=== PATIENT | female | born 1995 | race Caucasian/White ===

== ENCOUNTER 2023-06-25 16:28 | Emergency (ER) | payer OTHER, SELFPAY ==
[2023-06-25 16:31] VITALS: BP 126/92
[2023-06-25 16:49] LABS: % Basophils 1.1 % (0-2); % Eosinophils 7.9 % (0-6); % Immature Granulocytes 0.1 % (0-0.5); % Lymphocytes 30.3 % (20.5-51.1); % Monocytes 7.5 % (1.7-9.3); % Neutrophils 53.1 % (42.2-75.2); Absolute Basophils 0.1 10^3/uL (0-0.2); Absolute Eosinophils 0.6 10^3/uL (0-0.7); Absolute Lymphocytes 2.5 10^3/uL (1.2-3.4); Absolute Monocytes 0.6 10^3/uL (0.1-0.6); Absolute Neutrophils 4.3 10^3/uL (1.4-6.5); Hematocrit 40.2 % (37.0-47.0); Hemoglobin 14.4 g/dL (12.0-16.0); Mean Corp Hgb Conc. 35.8 g/dL (33.0-37.0); Mean Corpuscular Hgb 32.1 pg (27.0-31.0); Mean Corpuscular Volume 89.5 fL (81.0-99.0); Mean Platelet Volume 8.8 fL (7.4-10.4); Nucleated Red Blood Cells % 0 %; Platelet Count 353 10^3/uL (130-400); Red Blood Cell Count 4.49 10^6/uL (4.20-5.40); White Blood Cell Count 8.1 10^3/uL (4.8-10.8)
[2023-06-25 17:03] LABS: HCG, Serum Qualitative Screen Negative
[2023-06-25 17:47] LABS: ALT (SGPT) 15 U/L (0-35); AST (SGOT) 19 U/L (14-36); Albumin 4.6 g/dl (3.5-5.0); Alkaline Phosphatase 67 U/L (38-126); Blood Urea Nitrogen 13 mg/dl (7-17); Calcium 9.4 mg/dl (8.4-10.2); Carbon Dioxide 25 mmol/L (22-30); Chloride 106 mmol/L (98-107); Glucose 83 mg/dl (70-99); Potassium 3.8 mmol/L (3.5-5.1); Sodium 139 mmol/L (135-145); Total Bilirubin 0.4 mg/dl (0.2-1.3); Total Protein 7.7 g/dl (6.3-8.2); eGFR > 60.00
--- NOTE | 2023-06-25 20:36 | ED.GENMED ---
History of Present Illness
General
Chief Complaint: Abdominal Symptoms
Source: patient
Exam Limitations: none
Time Seen by Provider: 06/25/23 19:46
Nursing documentation reviewed up to this point in time: agreed with
Travel History
Have you had any contact with someone who has COVID-19?: No
Do you have any symptoms of coronavirus? Fever > 100 degrees, chills, cough, shortness of breath, sore throat, loss of taste or smell, muscle aches, or headache?: No
History of Present Illness
History of Present Illness:
28-year-old female states she's had diarrhea for a month, it had blood in it today. She denies abdominal pain. Denies fever. Is followed by her PCP and has had extensive workup of her stool recently and referred to GI for f/u and has appt w Dr. Love
next month.
She also has had pain left lower back for several weeks, has been doing home P/T with no relief of the pain.
Past History
Past History
ED Past Medical History: None and Other (Gastritis)
ED Past Surgical History: None
Social History
Tobacco: Non-smoker
Alcohol: None
Drug: None
Personal: Single
Living: with family
Employment: Student
Family History
Family History: Other (Noncontributory)
Review of Systems
Review of Systems
Allergies reviewed?: Yes
All Other Systems: ROS reviewed and negative except as documented in HPI and ROS
Constitutional: Denies fever
Respiratory: Denies trouble breathing
Cardiac: Denies chest pain
ABD/GI: Reports diarrhea and bloody stools; Denies abdominal pain, nausea, vomiting or anorexia
: Denies dysuria, frequency or difficulty voiding
Musculoskeletal: Reports no symptoms
Skin: Reports no symptoms
Neurological: Reports no symptoms
Phy Exam
Physical Exam
Physical Exam:
GENERAL: No acute distress. A&Ox3.
CONSTITUTIONAL: Afebrile.
EYES: clear, conjunctivae normal
ENMT: moist mucus membranes, Pharynx nl
RESPIRATORY: Regular respirations, nonlabored, lungs clear.
CARDIOVASCULAR: Regular rate and rhythm, no murmurs, no rubs.
GI: Soft, nontender, normal BS
Rectal: formed stool, brown, heme neg
MUSCULOSKELETAL: Tender over left SI joint. Full ROM. Moves with ease. Well perfused.
SKIN: Warm, dry, pink
PSYCH: Normal mood and affect. Well kept, interactive and appropriate
NEUROLOGIC: Awake, alert and oriented. No focal neurological deficits
Course
Orders/Labs/Results
Orders:
Orders
06/25/23 16:36
Test Result ONCE
06/25/23 16:41
Type+Screen Urgent
CBC/With Diff [Complete Blood Count/With Diff] Urgent
CMP [Comprehensive Metabolic Panel] Urgent
HCG, Serum Qualitative Screen Urgent
06/25/23 19:44
CDIFF [C difficile Antigen & Toxins] Urgent
MELYSSA Source: Feces/Stool
Specimen Description:
Date Specimen was Collected: 06/25/23
Time Specimen was Collected: 19:48
Stool Culture Urgent
MELYSSA Source: Feces/Stool
Specimen Description:
Date Specimen was Collected: 06/25/23
Time Specimen was Collected: 19:48
06/25/23 20:43
Dexamethasone [Decadron] 10 mg PO NOW STA
06/25/23 20:49
Dexamethasone Sod Phosphate [Decadron] 10 mg IV NOW STA
Abnormal Lab Results
06/25/23
16:41
MCH 32.1 H pg
(27.0-31.0)
RDW 11.0 L %
(11.5-14.5)
Eosinophils % 7.9 H %
(0-6)
06/25/23 16:41
06/25/23 16:41
Vital Signs
Initial and Last Documented VS:
Initial Vital Signs
Temp Pulse Resp BP Pulse Ox
98.1 F 73 18 126/92 99
06/25/23 16:31 06/25/23 16:31 06/25/23 16:31 06/25/23 16:31 06/25/23 16:31
Last Documented Vital Signs
Temp Pulse Resp BP Pulse Ox
98.1 F 73 18 126/92 99
06/25/23 16:31 06/25/23 16:31 06/25/23 16:31 06/25/23 16:31 06/25/23 19:41
MDM/Problems Addressed
Differential Diagnosis Includes:
viral vs infectious diarrhea
sacroiliitis, sciatica
MDM/Problems Addressed:
States she has had diarrhea for a month. She noted blood in her stool today. She has had extensive workup by PCP with numerous stool testing. She was referred to GI and has appt. with Dr. Love next month.
She is in no distress, last diarrhea was this a.m.
Labs are unremarkable.
For her left lower back pain, immediately tender over SI joint, short burst of steroids prescribed.
06/25/2023 1906 PM
CBC normal
CMP normal
hCG negative formed brown stool on rectal exam hematest negative
Abdomen benign, do not suspect diverticulitis/colitis, no indication for imaging at this point
*Critical Care Note
Total Time (30-74mins, 75-104mins- exclusive of procedures): Not Applicable
ED Attending Note
-
Portions of this chart may have been created with voice recognition software.� Occasional wrong word or��sound alike� substitutions may have occurred due to the inherent limitations of voice recognition software.
Discharge Plan
Departure
Patient Disposition: Home (Routine Discharge)
Date of Disposition: 06/25/23
Time of Disposition: 21:00
Patient with high blood pressure during this ER visit?: No
Condition: Good
Discharge Problem:
Low back pain, History of diarrhea
Instructions: Diarrhea in adolescents and adults, Back Exercises, Low Back Pain ED
Prescriptions:
New
prednisone 20 mg tablet
40 mg PO DAILY Qty: 6 0RF
No Action
Control
1 tab PO DAILY
pantoprazole 40 MG tablet,delayed release (DR/EC)
40 mg PO DAILY Qty: 15 0RF
ondansetron 4 MG tablet,disintegrating
4 mg PO TIDPRN PRN (Reason: nausea/vomiting) Qty: 12 0RF
Referrals:
Alma Love MD [Active] - Keep scheduled appt
Liss Perez PA-C [Family Provider] - As needed
Activity Restrictions/Additional Instructions:
As we discussed, your stool is formed and no blood noted in tonight's exam.
Use Imodium as directed on the label if needed for diarrhea
You were given a steroid, Decadron in your IV for your back pain. I sent a prescription to your pharmacy for Prednisone 40 mg daily for 3 days. See if it helps along with the back exercises.
Interventions
Interventions:
*Risk Screen - Suicide Last Done: 06/25/23 16:31
*General Assessment Last Done: 06/25/23 16:31
*Neglect/Abuse Screening Last Done: 06/25/23 16:31
ED- Fall Risk Assessment Last Done: 06/25/23 19:41
*ED COVID-19 Vaccine History Last Done: 06/25/23 16:37
*Nursing Disposition Last Done: 06/25/23 21:40
HQ-Ciawno-Ovmwwuoelc Assessment Last Done: 06/25/23 20:58
ED- Cardiac Assessment Last Done: 06/25/23 19:41
ED- Pulmonary Assessment Last Done: 06/25/23 19:41
Discharge Date and Time
Discharge Date/Time: 06/25/23 21:40
[2023-06-25] MEDS: DECADRON 10 MG IV (20:56)
== END 2023-06-25 21:40 | disposition home or self-care (01) ==
LOC: EMR 16:28
PROVIDERS: Emergency Medicine; EMERGENCY PHYSICIAN Emergency Medicine; FAMILY PHYSICIAN Physician Assistant
DX: M54.50 Low back pain, unspecified (principal); R19.7 Diarrhea, unspecified
CPT/HCPCS: 99284; 96374; 80053; 84703; 85025; 86850; 86900; 86901

== ENCOUNTER → 2023-07-08 08:11 | Outpatient (REF) | payer OTHER, SELFPAY | LOC: WDC 08:11 | PROVIDERS: ATTENDING PHYSICIAN Nurse Practitioner Family; FAMILY PHYSICIAN Physician Assistant | DX: N64.4 Mastodynia (principal) | CPT/HCPCS: 76642 ==

== ENCOUNTER → 2023-08-12 06:29 | Day surgery (SDC) | payer OTHER, SELFPAY | LOC: GI 06:29 | PROVIDERS: ATTENDING PHYSICIAN Internal Medicine Gastroenterology; FAMILY PHYSICIAN Physician Assistant | DX: R19.4 Change in bowel habit (principal); K64.8 Other hemorrhoids; K63.5 Polyp of colon | CPT/HCPCS: 45380; 88305 ==

== ENCOUNTER 2024-06-01 15:32 | Day surgery (SDC) | payer OTHER, SELFPAY ==
[2024-06-01] VITALS (17 sets, daily range): BP systolic 93–142; BP diastolic 56–99; BMI 26.5
[2024-06-01] MEDS: OMNIPAQUE 50 ML PO (10:47)
[2024-06-01] MEDS: MORPHINE SULFATE 4 MG IV ×2 (10:53→14:31)
[2024-06-01] MEDS: ZOFRAN 4 MG IV ×3 (10:53→18:22)
--- NOTE | 2024-06-01 10:56 | ED.GENMED ---
History of Present Illness
General
Chief Complaint: Abdominal Pain
Source: patient
Exam Limitations: none
Time Seen by Provider: 06/01/24 10:36
Nursing documentation reviewed up to this point in time: agreed with
History of Present Illness
History of Present Illness:
29-year-old female with no reported chronic medical issues presents to the emergency room for evaluation of abdominal pain. Patient reports a this morning when she woke up around 5:30 AM and have been constant since that time. She
reports pain located in the periumbilical region does not radiate. No clear triggering or relieving factors noted. She reports mild associated nausea no vomiting. No diarrhea. Denies any vaginal bleeding or discharge. Last menstrual period was
2 weeks ago. She denies any dysuria, hematuria, change urinary frequency. She denies any fevers or chills. She denies any similar symptoms in the past. She denies any prior surgical history.
Past History
Past History
ED Past Medical History: None and Other (Gastritis)
ED Past Surgical History: None
Social History
Tobacco: Non-smoker
Alcohol: None
Drug: None
Personal: Single
Living: with family
Employment: Student
Family History
Family History: Other (Noncontributory)
Review of Systems
Review of Systems
All Other Systems: ROS reviewed and negative except as documented in HPI and ROS
Constitutional: Denies fever or chills
Respiratory: Denies trouble breathing
Cardiac: Denies chest pain
ABD/GI: Reports abdominal pain and nausea; Denies vomiting or diarrhea
: Denies dysuria, frequency, flank pain or bleeding
Musculoskeletal: Denies neck pain or back pain
Neurological: Denies dizzy or headache
Phy Exam
Physical Exam
Physical Exam:
General: Awake, alert, oriented x3; no acute distress
Head: Normocephalic, atraumatic
Eyes: Conjunctiva normal, sclera anicteric
Throat: Airway intact, handling secretions
Neck: Trachea midline, supple without meningismus
Lungs: Clear to auscultation bilaterally, no wheezing, rales, rhonchi
Heart: Regular rate and rhythm, no murmurs, gallops, or rubs
Abd: Soft, non distended, diffusely tender maximal in the periumbilical region, no peritoneal signs or masses appreciated
Back: No CVA tenderness
Neuro: No gross deficits
Skin: no rash
Extremities: Warm and well-perfused
Scores
Heart Failure Risk
Heart Failure Risk Score: Not Applicable
Heart Score for Chest Pain Patients
STEMI patient?: Not applicable
Withdrawal Assessment of Alcohol
Withdrawal Assessment Completed?: Not applicable
Course
Orders/Labs/Results
Orders:
Orders
06/01/24 10:37
CT Abd/pel W Iv And Oral Contr Urgent
Comment:
Reason For Exam: periumbilical abd pain
Iohexol [Omnipaque] See Protocol PO NOW STA
Test Result ONCE
06/01/24 10:42
Complete Blood Count/With Diff Urgent
Comprehensive Metabolic Panel Urgent
HCG, Serum Qualitative Screen Urgent
Lipase Urgent
Urinalysis Reflex To Culture Urgent
Date Specimen was Collected: 06/01/24
Time Specimen was Collected: 10:35
Urine Microscopic Reflex Cult Urgent
06/01/24 10:49
Morphine Sulfate 4 mg IV NOW STA
Ondansetron Injectable [Zofran] 4 mg IV NOW STA
06/01/24 14:25
Morphine Sulfate 4 mg IV NOW STA
06/01/24 14:26
SURGICAL CONSULT Urgent
Consulting Provider: Julio Randhawa
Was physician already notified: Yes
Morphine Sulfate 4 mg IV NOW STA
Abnormal Lab Results
06/01/24
10:42
WBC 19.7 H 10^3/uL
(4.8-10.8)
Plt Count 430 H 10^3/uL
(130-400)
Abs Immat Gran (auto) 0.1 H 10^3/uL
(0-0.05)
Absolute Neuts (auto) 15.8 H 10^3/uL
(1.4-6.5)
Absolute Monos (auto) 1.0 H 10^3/uL
(0.1-0.6)
Neutrophils % 80.2 H %
(42.2-75.2)
Lymphocytes % 10.0 L %
(20.5-51.1)
Creatinine 0.4 L mg/dL
(0.6-1.0)
Total Protein 8.4 H g/dl
(6.3-8.2)
Ur Occult Blood Reflex 1+ A
(Negative)
Urine RBC 3-6 A /HPF
(0-2)
06/01/24 10:42
06/01/24 10:42
Vital Signs
Initial and Last Documented VS:
Initial Vital Signs
Temp Pulse Resp BP Pulse Ox
36.4 C 68 18 142/89 99
06/01/24 09:37 06/01/24 09:37 06/01/24 09:37 06/01/24 09:37 06/01/24 09:37
Last Documented Vital Signs
Temp Pulse Resp BP Pulse Ox
36.8 C 65 16 125/78 98
06/01/24 14:23 06/01/24 14:23 06/01/24 14:23 06/01/24 14:23 06/01/24 14:45
MDM/Problems Addressed
Differential Diagnosis Includes:
Appendicitis, pancreatitis, gastritis, enteritis, cholelithiasis
MDM/Problems Addressed:
29-year-old female presents for evaluation of periumbilical abdominal pain that started this morning has been constant. Vitals and exam as above. Check labs including a CBC and a CMP, hCG. Check lipase. Check urinalysis. Will check CT abdomen
pelvis. Treat symptomatically. Reassess after the above.
Labs reviewed: CBC shows leukocytosis at 19.7. CMP no clinically significant abnormalities. hCG negative. Urinalysis negative. CT pending.
CT shows no clear acute pathology, small amount of free fluid in the cul-de-sac. Clinical reassessment patient is still having significant pain requesting second dose of pain medication. Her tenderness seems to be more pronounced periumbilical and
right lower quadrant and with her significant leukocytosis and continued pain concerned that this could be an early appendicitis�appendix was not definitively visualized on CT on discussion with radiologist. Case discussed with general surgery for
consultation.
Call from radiologist�on review of study possible appendix visualized top normal size 7 mm no clear inflammatory stranding. General surgery consult pending.
General surgery evaluated concern for appendicitis will admit to general surgery.
*Radiology
Radiology exam reviewed: radiology read reviewed
*Pulse Oximetry
Patient hypoxic: no
*Critical Care Note
Total Time (30-74mins, 75-104mins- exclusive of procedures): Not Applicable
Data Reviewed
Review of Other/Old Records Reveals: Labs and Records
Source: patient
Patient Management
Discussion with other providers: Automatic Cigar Wrapper Tender (Discussed with general surgery) and Radiologist (Discussed with radiologist)
ED Attending Note
-
Portions of this chart may have been created with voice recognition software.� Occasional wrong word or��sound alike� substitutions may have occurred due to the inherent limitations of voice recognition software.
Discharge Plan
Departure
Patient Disposition: Admit
Date of Disposition: 06/01/24
Time of Disposition: 15:07
Admit to doctor: Andria
Presentation/result/management discussed w/ accepting MD/DO: Surgery
Discharge Problem:
Acute appendicitis
Prescriptions:
No Action
No Current Medications
0
Referrals:
Liss Perez PA-C [Family Provider] -
Interventions
Interventions:
*Risk Screen - Suicide Last Done: 06/01/24 09:37
*General Assessment Last Done: 06/01/24 09:37
*Neglect/Abuse Screening Last Done: 06/01/24 09:37
ED- Fall Risk Assessment Last Done: 06/01/24 10:57
*ED COVID-19 Vaccine History Last Done: 06/01/24 09:37
OG-Takkux-Gavsxvimll Assessment Last Done: 06/01/24 10:57
Discharge Date and Time
Print Language: TAMAZIGHT
[2024-06-01 11:13] LABS: Urine Albumin Negative (Neg - Trace); Urine Bilirubin Negative (Negative); Urine Glucose Negative (Negative); Urine Ketone Negative (Negative); Urine Leukocyte Negative (Negative); Urine Nitrite Negative (Negative); Urine Occult Blood 1+ (Negative); Urine Specific Gravity 1.015 (<1.030); Urine Urobilinogen Negative (Neg - 1+)
[2024-06-01 11:14] LABS: Urine Character Clear (Clear); Urine Color Yellow
[2024-06-01 11:15] LABS: HCG, Serum Qualitative Screen Negative
[2024-06-01 11:20] LABS: ALT (SGPT) 26 U/L (0-35); AST (SGOT) 27 U/L (14-36); Albumin 4.8 g/dl (3.5-5.0); Alkaline Phosphatase 101 U/L (38-126); Blood Urea Nitrogen 10 mg/dl (7-17); Calcium 10.1 mg/dl (8.4-10.2); Carbon Dioxide 27 mmol/L (22-30); Chloride 100 mmol/L (98-107); Estimated Creatinine Clearance 119 ml/min; Glucose 91 mg/dl (70-99); Lipase 73 U/L (23-300); Potassium 4.1 mmol/L (3.5-5.1); Sodium 137 mmol/L (135-145); Total Bilirubin 0.5 mg/dl (0.2-1.3); Total Protein 8.4 g/dl (6.3-8.2); eGFR > 60.00
[2024-06-01 11:22] LABS: % Basophils 0.5 % (0-2); % Eosinophils 3.6 % (0-6); % Immature Granulocytes 0.4 % (0-0.5); % Monocytes 5.3 % (1.7-9.3); % Neutrophils 80.2 % (42.2-75.2); Absolute Basophils 0.1 10^3/uL (0-0.2); Absolute Eosinophils 0.7 10^3/uL (0-0.7); Absolute Immature Granulocytes 0.1 10^3/uL (0-0.05); Absolute Neutrophils 15.8 10^3/uL (1.4-6.5); Hematocrit 45.8 % (37.0-47.0); Hemoglobin 15.3 g/dL (12.0-16.0); Mean Corp Hgb Conc. 33.4 g/dL (33.0-37.0); Mean Corpuscular Hgb 30.2 pg (27.0-31.0); Mean Corpuscular Volume 90.5 fL (81.0-99.0); Mean Platelet Volume 8.7 fL (7.4-10.4); Nucleated Red Blood Cells % 0 %; Platelet Count 430 10^3/uL (130-400); Red Blood Cell Count 5.06 10^6/uL (4.20-5.40); Red Cell Dist. Width 12.3 % (11.5-14.5); White Blood Cell Count 19.7 10^3/uL (4.8-10.8)
[2024-06-01 12:14] LABS: Urine Squamous Cell 21-25 /LPF (Few)
[2024-06-01 12:15] LABS: Urine Amorphous Seen; Urine Urothelial Cell 0-2 /LPF (FEW)
[2024-06-01 12:16] LABS: Urine Hyaline Cast 0-2 /LPF (0-2); Urine White Cell 0-2 /HPF (0-5)
--- NOTE | 2024-06-01 14:07 | EDRN ---
awaiting for Dr. Hoang to come back to the pts bedside and update the pt on the plan of care
--- NOTE | 2024-06-01 14:46 | EDRN ---
surgery currently at the pts bedside
--- NOTE | 2024-06-01 15:25 | EDRN ---
the [employer] and service director Anne Marie called this RN to get verbal report
--- NOTE | 2024-06-01 15:29 | HP.FOC2 ---
Focused History & Physical
Chief Complaint
HPI:
Chief Complaint: Abdominal pain
HPI / Indication for Planned Procedure: 29-year-old female who developed the acute onset of periumbilical abdominal pain awakening her from sleep at approximately 5 AM. No similar prior episodes. Was in her usual baseline state of health without
any associated symptoms preceding this. The pain has remained periumbilical and slightly towards the right lower quadrant. It has increased in severity despite morphine administered in emergency department. No nausea, no vomiting. Last bowel
movement this a.m. and normal. No recent sick contacts. No fevers chills or sweats.
Relevant Past Medical History: Negative
Relevant Social History: Negative
Relevant Family History: Negative
Relevant Past Surgical History: Negative
Review of Systems
Review of Pertinent Systems: All Systems Negative
Medication
See Medication form for detailed medications: Yes
Medication List (including Herbals & OTC):
No Meds [No Current Medications] 06/01/24
Medications Reviewed: Yes
Allergies and Reactions
Patient has Allergies: No
Noted Allergies and Reactions:
Allergy/AdvReac Type Severity Reaction Status Date / Time
No Known Allergies Allergy Verified 06/25/23 16:36
Pertinent Physical Exam
All Other Systems: Negative
Head/Neck: Normal
Lungs: Normal
Heart: Normal
Abdomen: Other (Soft, nondistended, tenderness to palpation periumbilical into the right lower quadrant with voluntary guarding on deep palpation. No rebound, no rigidity, no percussion tenderness)
Extremities: Normal
Neurological: Normal
Diagnosis / Assessment
Assessment: 29-year-old female with probable acute appendicitis. We discussed differential diagnosis which does include such as mesenteric adenitis, ovarian cyst.
Reviewed with patient history, examination and CT imaging identifying mildly distended appendix to 8 mm fluid-filled particularly in the mid to distal appendix. Discussed both operative and nonoperative management options and associated
risks/benefits of approaches. After discussions patient wishes to proceed with appendectomy.
Laparoscopic appendectomy reviewed in detail with the patient. Discussed operative technique, alternative management options, benefits and potential risks such as but not limited to bleeding, infectious or wound healing complications, iatrogenic
injury to surrounding viscera. Discussed the typical postoperative recovery pending operative findings.
Any of the patient's concerns or questions were fully addressed and informed consent was obtained.
Plan: OR for laparoscopic appendectomy.
Empiric antibiotic coverage with Zosyn.
Nothing by mouth, IV fluid hydration and supportive care awaiting operative room availability.
SCDs for DVT prophylaxis
Plan / Procedure
Laparoscopic appendectomy
Anesthesia/Sedation to be done by Anesthesia Provider: Yes
--- NOTE | 2024-06-01 15:40 | W.SUR.PREOP ---
Pre-Operative Surgical Note
-
I have examined this patient prior to the performance of the scheduled procedure.
The patient's condition is unchanged from the time of the current History and
Physical and the patient is able to undergo the scheduled procedure.
--- NOTE | 2024-06-01 17:06 | W.IMMPOSTOP ---
Addendum entered and electronically signed by Andrey Ayers MD 06/01/24 17:22:
#[id number]
Original Note:
Surgical Immed Post Op Note
-
Primary Surgeon: Andria
Assisting Surgeon: Cathie Stokes
Pre-op Diagnosis: Acute Appendicitis
Post-op Diagnosis: Acute Appendicitis
Procedure Performed: Laparoscopic Appendectomy
Anesthesia Type: GETA + 0.25% Marcaine w/ epi
Specimen / Cultures: appendix/none
Estimated Blood Loss: 4mL
Complications: none immediate
Operative Findings: acute appendicitis, no perforation, no abscess, no disruption of appendix with appendectomy.
Plan: diet as tolerated post op
routine post op care
spouse updated post op in waiting area
[2024-06-01] MEDS: NSS 1000 IV (18:26)
--- NOTE | 2024-06-01 18:33 | PTCARENOTE ---
Pt arrived to 2S in bed. Full assessment completed. Pt drowsy but easily arouses to verbal stimuli. Pt with c/o nausea, PRN medication provided. Abdominal lap sites C/D/I glued and RAFAEL. IVF infusing per order. Bed locked and in the lowest position,
safety maintained. Oriented to room and call grant, spouse at bedside.
[2024-06-01] MEDS: COMPAZINE 5 MG IV (21:03)
[2024-06-02 02:33] VITALS: BP 107/64
--- NOTE | 2024-06-02 07:30 | W.PN.SURGUPD ---
Surgical Update
Surgical Update
Patient seen and examined.
Feeling well this a.m. Initial postoperative nausea subsided. Appetite returning.
Postoperative pain reportedly minimal.
AFVSS
NAD, AAOx3
ABD: Soft, nondistended, mild tenderness to palpation at incision sites. Incisions with glue dressings.
A/P: 29-year-old female POD #1 status post lap appendectomy
Doing well postop D/C home
D/C instructions reviewed
--- NOTE | 2024-06-02 07:32 | W.DS.TRANS ---
DC Summary - Furniture Repair Technician
-
Discharge Instructions:
Discharge Diagnosis/Procedures Acute appendicitis, laparoscopic appendectomy
Diet As tolerated,Regular
Additional Diets Smaller meals initially after surgery as
abdominal bloating and distention are common for
the first few days
Activity No strenuous activity
Additional Activity No lifting over 15 to 20 pounds for 3 to 4 weeks
postoperatively
Driving Restrictions No driving 2 to 3 days or if using narcotics
Bathing Restrictions OK to Shower
Wound Care Glue at surgical sites typically peels off in 2
to 3 weeks
Instructions:
Stand-Alone Forms:
Changes to Home Medications: No
Discharge Medications:
DC Medications w/original date entered in [facility]
acetaminophen 500 mg tablet (Tylenol Extra Strength) 1,000 mg (2 x 500 mg) PO Q6HPRN PRN mild pain #1 tab 06/01/24
ibuprofen 200 mg tablet 400 mg (2 x 200 mg) PO Q6HPRN PRN moderate pain #1 tab 06/01/24
oxycodone 5 mg tablet 5 mg PO Q4HPRN PRN breakthrough/severe pain #5 tabs 06/01/24
Home Medication Changes
Pending Results: No
[2024-06-02 07:40] VITALS: BP 94/58
--- NOTE | 2024-06-02 10:47 | CM ---
Reviewed the chart notes. Patient left prior to CM being able to complete initial assessment. No needs. Per nursing, spouse provided transportation home.
== END 2024-06-02 10:10 | disposition home or self-care (01) ==
LOC: SDS 15:32
PROVIDERS: ATTENDING PHYSICIAN Surgery; CONSULT PHYSICIAN Surgery; EMERGENCY PHYSICIAN Emergency Medicine; FAMILY PHYSICIAN Physician Assistant
DX: K35.80 Unspecified acute appendicitis (principal); R10.33 Periumbilical pain
CPT/HCPCS: 44970; 88304; 74177; 80053; 81003; 81015; 83690; 84703; 85025; 96374; 96375; 96376; 99285; C1776; Q9967

== ENCOUNTER → 2024-10-07 18:42 | Outpatient (REF) | payer OTHER, SELFPAY | LOC: MRI 3T 18:42 | PROVIDERS: ATTENDING PHYSICIAN Physician Assistant | DX: K76.9 Liver disease, unspecified (principal) | CPT/HCPCS: 74183; A9575 ==